=== PATIENT | female | born 1960 | race Caucasian/White ===

== ENCOUNTER 2024-01-20 14:00 | Outpatient (CLI) | payer OTHER | END 2024-01-20 14:01 | disposition home or self-care (01) | LOC: CSHMRI 14:00 | PROVIDERS: ATTEND Psychiatry & Neurology Neurology | DX: M48.02 Spinal stenosis, cervical region (principal); M47.812 Spondylosis without myelopathy or radiculopathy, cervical region | CPT/HCPCS: 72141 ==

== ENCOUNTER 2025-04-19 13:12 | Outpatient (CLI) | payer OTHER | END 2025-04-19 13:13 | disposition home or self-care (01) | LOC: CSHMAMMO 13:12 → CSHRAD 13:13 | PROVIDERS: ATTEND Family Medicine | DX: J44.9 Chronic obstructive pulmonary disease, unspecified (principal); Z12.31 Encounter for screening mammogram for malignant neoplasm of breast | CPT/HCPCS: 71046; 77063; 77067 ==